=== PATIENT | male | born 1970 | race Caucasian/White ===

== ENCOUNTER 2018-01-31 08:29 | Day surgery (SDC) | payer BC ==
[~2018-01-31] VITALS: Ht 175.3 cm; Wt 110.9 kg
[~2018-01-31 08:29] MED LIST: BACITRACIN OINT 500U/GM, 15 GM ONE; Cholesterol Med PO; EPINEPHRINE 1 MG/ML, 1ML ONE; GELFILM OPHTHALMIC DRESSING ONE; LIDOCAINE 1%-EPI 1:100K, 30ML ONE; OFLOXACIN OPHTH 0.3%, 5ML ONE
[2018-01-31] MEDS ORDERED: LACTATED RINGERS 1,000 ML IV SCH (09:04)
[2018-01-31 09:08] VITALS: BP_SYST 137; BP_DIAS 103; BP_DIAS 84
[2018-01-31] MEDS ORDERED: MIDAZOLAM 1 MG/ML, 2ML ONE (10:40)
[2018-01-31] MEDS ORDERED: FENTANYL PF 250 MCG/5ML ONE (10:41)
[2018-01-31] MEDS ORDERED: ONDANSETRON ODT 8 MG ONE (11:44)
[2018-01-31] MEDS ORDERED: ACETAMINOPHEN 500 MG TABLET ONE (11:44)
[2018-01-31] MEDS ORDERED: ONDANSETRON ODT 8 MG PO ONE (12:00)
[2018-01-31] MEDS ORDERED: ACETAMINOPHEN 500 MG TABLET PO ONE (12:00)
[2018-01-31] MEDS ORDERED: CIPROFLOXACIN/PMX 400MG/200ML 200 ML ONE (12:17)
[2018-01-31] MEDS ORDERED: PHENYLEPHRINE 10 MG/ML ONE (12:25)
[2018-01-31] MEDS ORDERED: OXYcodone 5 MG/5 ML ORAL.SOL UDC PO PRN (12:30)
[2018-01-31] MEDS ORDERED: ONDANSETRON 2MG/ML, 2ML IV PRN (12:30)
[2018-01-31] MEDS ORDERED: HYDROmorphone 1 MG/ML, 1ML IV PRN (12:30)
[2018-01-31] MEDS ORDERED: MEPERIDINE/PF 25MG/0.5ML IVPush PRN (12:30)
[2018-01-31] MEDS ORDERED: FENTANYL PF 100 MCG/2ML IV PRN (12:30)
[2018-01-31] MEDS ORDERED: PROMETHAZINE 25 MG/ML, 1ML IV PRN (12:30)
[2018-01-31] MEDS ORDERED: MIDAZOLAM 1 MG/ML, 2ML IV PRN (12:30)
[2018-01-31] MEDS ORDERED: ALBUTEROL SULFATE 2.5 MG/3 ML NPPB PRN (12:30)
[2018-01-31] MEDS ORDERED: MORPHINE SULFATE 4 MG/ML, 1ML IVPush PRN (12:30)
[2018-01-31] MEDS ORDERED: PROMETHAZINE 12.5 MG SUPP PR PRN (12:30)
[2018-01-31] MEDS ORDERED: HALOPERIDOL 5 MG/ML IV PRN (12:30)
[2018-01-31] MEDS ORDERED: ONDANSETRON ODT 8 MG PO PRN (12:30)
[2018-01-31] MEDS ORDERED: EPHEDRINE 50 MG/ML, 1ML IVPush PRN (12:30)
[2018-01-31] MEDS ORDERED: LORazepam 2 MG/ML, 1ML IVPush PRN (12:30)
[2018-01-31] MEDS ORDERED: LABETALOL 5MG/ML, 20ML IV PRN (12:30)
[2018-01-31] MEDS ORDERED: hydrALAzine 20 MG/ML, 1ML IV PRN (12:30)
[2018-01-31] MEDS ORDERED: ROCURONIUM 10MG/ML,5ML ONE (12:33)
[2018-01-31] MEDS ORDERED: SUCCINYLCHOLINE 20 MG/ML, 10ML ONE (12:33)
[2018-01-31] MEDS ORDERED: PROPOFOL 10 MG/ML, 20ML ONE (12:33)
[2018-01-31] MEDS ORDERED: DEXAMETHASONE 4 MG/ML, 1ML ONE ×2 (12:34)
== END 2018-01-31 17:40 | disposition home or self-care (01) ==
LOC: OUT 08:29
PROVIDERS: ATTEND Specialist
DX: H90.72 Mixed conductive and sensorineural hearing loss, unilateral, left ear, with unrestricted hearing on the contralateral side (principal); H71.92 Unspecified cholesteatoma, left ear; H92.12 Otorrhea, left ear; F17.210 Nicotine dependence, cigarettes, uncomplicated; E78.5 Hyperlipidemia, unspecified; J44.9 Chronic obstructive pulmonary disease, unspecified; Z72.89 Other problems related to lifestyle; Z90.49 Acquired absence of other specified parts of digestive tract
CPT/HCPCS: 69642; 88304; J0171; J0330; J0744; J1100; J2250; J2370; J2704; J3010; J3490; J7120; L8613; Q0162